=== PATIENT | male | born 1955 | race Caucasian/White ===

== ENCOUNTER 2018-06-24 10:04 | Emergency (ER) | payer BC, MEDICAID ==
[2018-06-24] MEDS ORDERED: Sodium Chloride 0.9% 1,000 ML IV ONE (10:57)
[2018-06-24] MEDS ORDERED: Ketorolac 30 MG/ML SDV IVPUSH ONE (10:57)
--- NOTE | 2018-06-24 11:02 | EDM.PDOC ---
ED HPI GENERAL MEDICAL PROBLEM - General Chief Complaint: Headache Stated Complaint: HEADACHESCHM Time Seen by Provider: 06/24/18 10:55 Source of Information: Reports: Patient History Limitations: Reports: No Limitations - History of Present Illness INITIAL COMMENTS - FREE TEXT/NARRATIVE: This 63 yo male patient reports to the ED with a migraine headache. The patient reports his symptoms started today and have been getting worse. The patient reports that he took 324 mg of Aspirin with no relief. The patient reports that he has a history of migraine headaches, but he has not had one yet this year. The patient reports his pain is all over his head. 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 Headache Pain Score (Numeric/FACES): 8 - Related Data Allergies Allergy/AdvReac Type Severity Reaction Status Date / Time Penicillins Allergy Cannot Verified 06/24/18 10:39 Remember Home Meds: Home Meds Aspirin 325 mg PO PRN 06/24/18 [History] Multivit-Min/FA/Lycopen/Lutein [Men 50 Plus Multivitamin Tab] 1 tab PO DAILY [History] Psyllium Husk [Metamucil] 0.4 gm PO DAILY 06/24/18 [History] Past Medical History HEENT History: Reports: Impaired Vision Cardiovascular History: Reports: None Respiratory History: Reports: None Gastrointestinal History: Reports: None Genitourinary History: Reports: None Musculoskeletal History: Reports: Other (See Below) Other Musculoskeletal History: fractured right arm Neurological History: Reports: None Psychiatric History: Reports: None Endocrine/Metabolic History: Reports: Diabetes, Type II Hematologic History: Reports: None Immunologic History: Reports: None Oncologic (Cancer) History: Reports: None Dermatologic History: Reports: None - Infectious Disease History Infectious Disease History: Reports: None - Past Surgical History Head Surgeries/Procedures: Reports: None HEENT Surgical History: Reports: None GI Surgical History: Reports: Hernia, Abdominal Social & Family History - Family History Family Medical History: Noncontributory - Tobacco Use Smoking Status *Q: Never Smoker Second Hand Smoke Exposure: No - Caffeine Use Caffeine Use: Reports: None - Recreational Drug Use Recreational Drug Use: No ED ROS GENERAL - Review of Systems Review Of Systems: ROS reveals no pertinent complaints other than HPI. - Physical Exam Exam: See Below Exam Limited By: No Limitations General Appearance: Alert, WD/WN, Moderate Distress Eye Exam: Bilateral Eye: EOMI, Normal Inspection, PERRL Ears: Normal External Exam, Normal Canal, Hearing Grossly Normal, Normal TMs Nose: Normal Inspection, Normal Mucosa, No Blood Throat/Mouth: Normal Inspection, Normal Lips, Normal Teeth, Normal Gums, Normal Oropharynx, Normal Voice, No Airway Compromise Head Exam: Atraumatic, Normocephalic Neck: Normal Inspection, Supple, Non-Tender, Full Range of Motion Respiratory/Chest: No Respiratory Distress, Lungs Clear, Normal Breath Sounds, No Accessory Muscle Use, Chest Non-Tender Cardiovascular: Normal Peripheral Pulses, Regular Rate, Rhythm, No Edema, No Gallop, No JVD, No Murmur, No Rub GI/Abdominal: Normal Bowel Sounds, Soft, Non-Tender, No Organomegaly, No Distention, No Abnormal Bruit, No Mass (Male) Exam: Deferred Rectal (Males) Exam: Deferred Neuro Exam (Abbreviated): Alert, Oriented, CN II-XII Intact, Normal Cognition, Normal Gait, Normal Reflexes, No Motor/Sensory Deficits Back Exam: Normal Inspection, Full Range of Motion, NT Extremities: Normal Inspection, Normal Range of Motion, Non-Tender, No Pedal Edema, Normal Capillary Refill Psychiatric: Normal Affect, Normal Mood Skin Exam: Warm, Dry, Intact, Normal Color, No Rash Course - Vital Signs Last Recorded V/S: Last Vital Signs Temp 37.2 C 06/24/18 10:42 Pulse 88 06/24/18 10:42 Resp 18 06/24/18 10:42 BP 145/80 H 06/24/18 10:42 Pulse Ox 97 06/24/18 10:42 - Orders/Labs/Meds Labs: Laboratory Tests 06/24/18 06/24/18 06/24/18 Range/Units 11:32 11:32 11:32 WBC 10.0 (5.0-10.0) 10^3/uL RBC 4.71 (4.6-6.2) 10^6/uL Hgb 12.9 L (14.0-18.0) g/dL Hct 39.6 L (40.0-54.0) % MCV 84.1 (80-100) fL MCH 27.4 (27.0-34.0) pg MCHC 32.6 L (33.0-35.0) g/dL Plt Count 224 (150-450) 10^3/uL Neut % (Auto) 75.4 H (42.2-75.2) % Lymph % (Auto) 18.7 L (20.5-50.1) % Harney % (Auto) 5.5 (2-8) % Eos % (Auto) 0.1 L (1.0-3.0) % Baso % (Auto) 0.3 (0.0-1.0) % ESR 11 (0-15) mm/hr Sodium 130 L (135-145) mmol/L Potassium 4.2 (3.6-5.0) mmol/L Chloride 97 L (101-111) mmol/L Carbon Dioxide 23.0 (21.0-31.0) mmol/L Anion Gap 14.2 BUN 15 (7-18) mg/dL Creatinine 1.1 (0.6-1.3) mg/dL Est Cr Clr Drug Dosing 68.74 mL/min Estimated GFR (MDRD) > 60 BUN/Creatinine Ratio 13.63 Glucose 341 H (74-105) mg/dL Calcium 8.7 (8.4-10.2) mg/dl Total Bilirubin 0.5 (0.2-1.0) mg/dL AST 18 (10-42) IU/L ALT 16 (10-60) IU/L Alkaline Phosphatase 73 (42-121) IU/L Total Protein 7.1 (6.7-8.2) g/dl Albumin 3.8 (3.2-5.5) g/dl Globulin 3.3 Albumin/Globulin Ratio 1.15 Meds: Medications Discontinued Medications Generic Name Dose Route Start Last Admin Trade Name Freq PRN Reason Stop Dose Admin Sodium Chloride 1,000 mls @ 999 mls/hr 06/24/18 10:57 06/24/18 11:13 Normal Saline IV 06/24/18 11:57 999 mls/hr .BOLUS ONE Administration Iopamidol 100 ml 06/24/18 11:58 06/24/18 12:38 Isovue-370 (76%) IVPUSH 06/24/18 11:59 100 ml ONETIME ONE Administration Ketorolac Tromethamine 30 mg 06/24/18 10:57 06/24/18 11:13 Toradol IVPUSH 06/24/18 10:58 30 mg ONETIME ONE Administration - Re-Assessments/Exams Free Text/Narrative Re-Assessment/Exam: 06/24/18 11:31 The patient's coworker reports that he has not been normal over the past couple of days. 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 Today, the coworker reports that the patient was on his way to [place] instead of staying with the crew. The patient was questioned about this and reports that he notices that he has not been able to preform his job as he had before. The patient reports that it is due to his headache. An order was placed for the patient to have some lab work done and get a CT of his head. The patient was in agreement with the plan. Departure - Departure Time of Disposition: 13:21 Disposition: DC/Tfer to Acute Hospital 02 Condition: Poor Clinical Impression: CVA (cerebral vascular accident) Qualifiers: CVA mechanism: other Qualified Code(s): I63.8 - Other cerebral infarction - Discharge Information *PRESCRIPTION DRUG MONITORING PROGRAM REVIEWED*: Not Applicable *COPY OF PRESCRIPTION DRUG MONITORING REPORT IN PATIENT ÁNGELA: Not Applicable Forms: ED Department Discharge Care Plan Goals: Discussed the history, examination, treatments, lab and CT results with Dr. Bernal (Neurology) and Dr. Baird (Hospitalist) with in [place]. Dr. Baird accepted the patient for continued evaluation and treatment at in [place]. The patient will be transported by [facility].
[2018-06-24] MEDS ORDERED: Iopamidol 755 Mg/ML 100 ML Bottle IVPUSH ONE (11:58)
[2018-06-24 12:03] LABS: ANION GAP 14.2; CHLORIDE,CL 97 mmol/L (101-111); SODIUM,NA 130 mmol/L (135-145)
--- NOTE | 2018-06-24 12:48 | CT ---
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 No known trauma and patient denies "smoking" or history of primary malignancy. Scan technique: Volume acquisition of data from the head and brain obtained before and during/after i ntravenous infusion of nonionic Isovue 370 (75 cc) contrast while lying supine on the Siemens multi s lice scanner [place], [place]. All data archived in the PACS system fo r storage, reformatting axial and sagittal planes, and study. Interpretation: Abnormal. 1. Large areas of decreased attenuation involving the temporal lobe, on the right and the mid parieta l convexity, high on the left. 2. No mass effect or associated enhancing tumoral neovascularity and no signs of acute intracerebral bleed i.e. apparent large ischemic infarcts both hemispheres. 3. Some additional scattered tiny microvascular ischemic changes in the periventricular white matter both cerebral hemispheres. 4. No abnormal extracerebral/intracranial epidural or subdural hematoma. No sign of acute intraventri cular or subarachnoid bleed. 5. Mirror-image ventricular system; physiologic midline pineal and symmetric choroid plexus calcifica tions. 6. No posterior fossa mass lesion. Cerebellum and brainstem unremarkable. CONCLUSION: Multi-infarct ischemic disease. No intracranial mass or bleed. 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
== END 2018-06-24 13:45 ==
LOC: DL.ED 10:04
DX: I63.8 Other cerebral infarction (principal); E11.9 Type 2 diabetes mellitus without complications; Z88.0 Allergy status to penicillin; Z79.82 Long term (current) use of aspirin; Z79.899 Other long term (current) drug therapy
CPT/HCPCS: 36415; 70470; 80053; 85025; 85651; 96361; 96374; 99285; J1885; J7030; Q9967